=== PATIENT | male | born 1975 | race Caucasian/White ===

== ENCOUNTER 2016-07-15 11:41 | Emergency (ER) | payer MEDICAID ==
[~2016-07-15] VITALS: Ht 165.1 cm; Wt 61.0 kg
[~2016-07-15 11:41] MED LIST: HYDR-3498 PO; HYDR-906 PO; NAPR-260 PO; TAMS-14 PO
[2016-07-15 11:45] VITALS: Ht 165.1 cm; Wt 61.0 kg
[2016-07-15] MEDS ORDERED: SOD CHLORIDE 0.9% 1,000 ML IV STA (14:23)
--- NOTE | 2016-07-15 14:58 | RADRPT ---
PROCEDURE: XR Chest. CLINICAL INDICATION: chest pain, palpitations TECHNIQUE: Single frontal view of the chest was obtained COMPARISON: None FINDINGS: The heart and mediastinum are within normal limits. The lungs are clear. There is no pleural effusion or pneumothorax. RPTAT: AA IMPRESSION: No acute disease. .Fred Awan MD, MD Date Time Electronically viewed and signed by .Fred Awan MD, on 07/15/2016 14:57 .S/
--- NOTE | 2016-07-15 15:09 | RADRPT ---
PROCEDURE: CT Brain without contrast. CLINICAL INDICATION: Headache, dizziness and palpitations. TECHNIQUE: A CT of the brain was performed on a [employer] CT scanner. CT s canner utilizing a low dose technique with axial imaging from the skull base through the vertex with out IV contrast. Multiplanar reformatted images were made. Images were reviewed on a PACS workstat ion. The CTDIvol is 43.6 mGy and the DLP is 720.2 mGycm. One or more of the following dose reduction techniques were used: - Automated exposure control. - Adjustment of the mA and/or kV according to patient size. Use of iterative reconstruction technique. COMPARISON: None FINDINGS: The fourth ventricle is normal in size. The third and lateral ventricles are normal in size and con figuration. There are idiopathic calcifications in the basal ganglia. No intracranial bleed is iden tified. No intracranial mass is noted. The visible portions of the globes and extraocular muscles are normal. The paranasal sinuses are cl ear. The mastoid air cells and internal auditory canals are normal. The bony calvarium is intact. IMPRESSION: 1. Negative CT scan of the brain without contrast. 2. Idiopathic basil ganglia calcifications. RPTAT:AAJJ Physician Malou Date Time Electronically viewed and signed by Physician Malou on 07/15/2016 15:08 KIET/
[2016-07-15 15:14] LABS: ADD SCAN DIFF NO
[2016-07-15 15:16] LABS: BASOPHIL # 0.1 10^3/ul (0.0-0.1); BASOPHILS % 0.9 % (0.0-2.0); EOSINOPHILS % 0.3 % (0.0-7.0); HEMATOCRIT 48.8 % (42.0-52.0); HEMOGLOBIN 16.5 g/dl (14.0-18.0); LYMPHOCYTES # 2.4 10^3/ul (0.8-2.9); LYMPHOCYTES % 26.5 % (15.0-51.0); MEAN CORPUSCULAR HEMOGLOBIN 31.5 pg (29.0-33.0); MEAN CORPUSCULAR HGB CONC 33.8 g/dl (32.0-37.0); MEAN CORPUSCULAR VOLUME 93.3 fl (82.0-101.0); MEAN PLATELET VOLUME 11.4 fl (7.4-10.4); MONOCYTE # 0.4 10^3/ul (0.3-0.9); MONOCYTES % 4.7 % (0.0-11.0); NEUTROPHIL # 6.1 10^3/ul (1.6-7.5); NEUTROPHILS % 67.2 % (39.0-77.0); PLATELET COUNT 199 10^3/UL (140-415); RED BLOOD COUNT 5.23 10^6/ul (4.70-6.10); RED CELL DISTRIBUTION WIDTH 11.9 % (11.5-14.5)
[2016-07-15 15:26] LABS: CHLORIDE 105 mmol/L (97-110)
[2016-07-15 15:27] LABS: ALBUMIN 5.5 g/dl (3.3-4.9); INR 0.99; POTASSIUM 3.8 mmol/L (3.5-5.1); PROTIME 13.1 Sec (12.2-14.2); SODIUM 144 mmol/L (135-144)
[2016-07-15 15:28] LABS: PARTIAL THROMBOPLASTIN TIME 35.1 Sec (25.0-35.0)
[2016-07-15 15:29] LABS: CREATININE 0.81 mg/dl (0.61-1.24)
[2016-07-15 15:30] LABS: ALANINE AMINOTRANSFERASE 39 IU/L (13-69); ALBUMIN/GLOBULIN RATIO 1.48; ALKALINE PHOSPHATASE 81 IU/L (42-121); ANION GAP 18 (8-16); ASPARTATE AMINO TRANSFERASE 35 IU/L (15-46); BILIRUBIN,INDIRECT 0.6 mg/dl (0-1.1); BILIRUBIN,TOTAL 0.6 mg/dl (0.2-1.3); BLOOD UREA NITROGEN 12 mg/dl (7-20); CARBON DIOXIDE 25 mmol/L (21-31); GLUCOSE 90 mg/dl (70-220); TOTAL PROTEIN 9.2 g/dl (6.1-8.1)
[2016-07-15 15:31] LABS: CALCIUM 9.8 mg/dl (8.4-10.2)
[2016-07-15 15:42] LABS: TROPONIN-I < 0.012 ng/ml (0.00-0.12)
[2016-07-15 16:04] LABS: ADD UMIC NO; URINE BILIRUBIN (Dip) NEGATIVE (NEGATIVE); URINE BLOOD (Dip) NEGATIVE (NEGATIVE); URINE COLOR LT. YELLOW (YELLOW); URINE GLUCOSE (Dip) NEGATIVE (NEGATIVE); URINE KETONES (Dip) NEGATIVE (NEGATIVE); URINE LEUKOCYTE ESTERASE (Dip) NEGATIVE (NEGATIVE); URINE NITRITE (Dip) NEGATIVE (NEGATIVE); URINE TOTAL PROTEIN (Dip) NEGATIVE (NEGATIVE); URINE UROBILINOGEN (Dip) 0.2 E.U./dL (0.1-1.0)
--- NOTE | 2016-07-15 16:05 | ERD ---
ER Documentation Chief Complaint Date/Time DATE: 07/15/16 Chief Complaint Dizziness. Palpitations. HPI The patient is a 41-year-old male with history of dyslipidemia who presents to the Emergency Department with complaint of dizziness and palpitations since last night. The patient reports that he has a known history of dyslipidemia, and was recently placed on a course of a new medication for treatment, Gemfibrozil. He was prescribed Gemfibrozil 600 mg PO BID, to be taken 30 minutes prior to morning and evening meals. Yesterday was the patient's first day of taking the medication, and he took a dose at 7:00 am and then again at 5: 00 pm in the evening. Approximately 2 hours after taking his evening nose, he developed symptoms of palpitations, dizziness and lightheadedness. He denies any syncope or near-syncopal episodes. The patient's symptoms persisted until this morning, and therefore he presents to the Emergency Department for evaluation. He denies any chest pain, shortness of breath, cough, weakness, lower extremity edema, fevers, sweats, chills, neck pain/stiffness. Denies muscle aches/pains, abdominal pain, nausea, vomiting. Denies slurred speech, dysarthria, ataxia, or dysmetria. Denies any change in symptoms with any sort of head movements. He denies any recent head injury/trauma. Denies focal weakness or deficits. Denies history of similar symptoms in the past. Denies recent ear pain, ear fullness, tinnitus, or hearing changes. The patient does note that upon presentation to the ED, his symptoms have improved. No other complaints at this time. ROS All systems reviewed and are negative except as per history of present illness. Medications Home Meds Active Scripts Tamsulosin Hcl* (Flomax*) 0.4 Mg Cap.er.24h, 0.4 MG PO QPM, #10 CAP Prov:GABRIELLE CRUM PA-C 01/31/16 Naproxen* (Naprosyn*) 500 Mg Tablet, 500 MG PO BID Y for PAIN AND/OR INFLAMMATION, #30 TAB Prov:GABRIELLE CRUM PA-C 01/31/16 Hydrocodone/Acetaminophen (Lee 5-325 Tablet) 1 Each Tablet, 1 TAB PO Q6H Y for PAIN, #7 TAB Prov:GABRIELLE CRUM PA-C 01/31/16 Hydrocodone Bit-Acetaminophen* (Lee*) 5-325 Mg Tab, 1 TAB PO q6h Y for PAIN, # 30 TAB Prov:ERINN HORTON PACE ANALYST 05/03/15 Allergies Allergies: Coded Allergies: No Known Allergy (Unverified , 05/02/15) PMhx/Soc History of Surgery: No Anesthesia Reaction: No Hx Neurological Disorder: No Hx Respiratory Disorders: No Hx Cardiac Disorders: No Hx Psychiatric Problems: No Hx Miscellaneous Medical Probl: Yes (HYPERLIPIDEMIA) Hx Alcohol Use: No Hx Substance Use: No Hx Tobacco Use: No Smoking Status: Never smoker Physical Exam Vitals Vital Signs Date Time Temp Pulse Resp B/P Pulse Ox O2 Delivery O2 Flow Rate FiO2 07/15/16 16:49 98.4 69 18 117/69 100 Room Air 07/15/16 11:45 98.5 94 18 120/82 99 Physical Exam GENERAL: Well-developed, well-nourished, male, in no acute distress HEENT: Head is normocephalic, atraumatic. No scleral pallor or icterus. Pupils equal, round and reactive to light. Extraocular movements intact. Conjunctiva pink. No nystagmus. No photophobia. Bilaterally tympanic membranes are clear with no evidence of erythema, effusion or dulling of the light reflex. Moist mucous membranes. NECK: Supple. RESPIRATORY: Lungs are clear to auscultation bilaterally. Equal breath sounds. Normal expiratory effort. CARDIOVASCULAR: Regular rate and rhythm. S1 and S2 normal. No murmurs, rubs, or gallops. Distal pulses are palpable, 2+ bilaterally. Capillary refill is less than 2 seconds. GASTROINTESTINAL: Abdomen is soft, non-tender, and non-distended. Normal bowel sounds. FLANK: No CVA tenderness. BACK: No midline tenderness. EXTREMITIES: No clubbing, cyanosis, or edema. Normal skin perfusion. Joints non- tender, no joint effusion. Full range of motion of both the upper and lower extremities bilaterally. Muscle tone is normal. No focal swelling or erythema. NEUROLOGIC: The patient is awake, alert, oriented to person, place and time. Speech is fluent. Language parameters are intact. Follows commands well. Comprehension is intact. Cranial nerves II through XII are intact. Pupils are equal and reactive bilaterally. Extraocular movements are intact. There is no nystagmus. Facial sensation and facial movements are symmetrical. Uvula elevates symmetrically. Tongue is midline. Motor examination reveals 5/5 strength in bilateral upper and lower extremities. Sensory examination is grossly intact to light touch. Reflexes symmetrical. Normal jzoalp-ex-ayhd testing. No visual field deficits. Vision grossly intact. Gait is observed and normal, no ataxia. INTEGUMENT: Skin is intact. Warm and dry. No rashes, no petechiae present. Normal turgor. PSYCHIATRIC: Cooperative. Appropriate. Result Diagram: 07/15/16 1445 07/15/16 1445 Results 24 hrs Laboratory Tests Test 07/15/16 14:43 07/15/16 14:45 07/15/16 15:00 Bedside Glucose 91mg/dL White Blood Count 9.010^3/ul Red Blood Count 5.2310^6/ul Hemoglobin 16.5g/dl Hematocrit 48.8% Mean Corpuscular Volume 93.3fl Mean Corpuscular Hemoglobin 31.5pg Mean Corpuscular Hemoglobin Concent 33.8g/dl Red Cell Distribution Width 11.9% Platelet Count 01368^3/UL Mean Platelet Volume 11.4fl Neutrophils % 67.2% Lymphocytes % 26.5% Monocytes % 4.7% Eosinophils % 0.3% Basophils % 0.9% Nucleated Red Blood Cells % 0.0/100WBC Neutrophils # 6.110^3/ul Lymphocytes # 2.410^3/ul Monocytes # 0.410^3/ul Eosinophils # 0.010^3/ul Basophils # 0.110^3/ul Nucleated Red Blood Cells # 0.010^3/ul Prothrombin Time 13.1Sec Prothrombin Time Ratio 1.0 INR International Normalized Ratio 0.99 Activated Partial Thromboplast Time 35.1Sec Sodium Level 144mmol/L Potassium Level 3.8mmol/L Chloride Level 105mmol/L Carbon Dioxide Level 25mmol/L Anion Gap 18 Blood Urea Nitrogen 12mg/dl Creatinine 0.81mg/dl Glucose Level 90mg/dl Calcium Level 9.8mg/dl Total Bilirubin 0.6mg/dl Direct Bilirubin 0.00mg/dl Indirect Bilirubin 0.6mg/dl Aspartate Amino Transf (AST/SGOT) 35IU/L Alanine Aminotransferase (ALT/SGPT) 39IU/L Alkaline Phosphatase 81IU/L Troponin I < 0.012ng/ml Total Protein 9.2g/dl Albumin 5.5g/dl Globulin 3.70g/dl Albumin/Globulin Ratio 1.48 Thyroid Stimulating Hormone (TSH) 1.320MIU/L Free Thyroxine 1.20ng/dl Urine Color LT. YELLOW Urine Clarity CLEAR Urine pH 5.0 Urine Specific [place] <=1.005 Urine Ketones NEGATIVE Urine Nitrite NEGATIVE Urine Bilirubin NEGATIVE Urine Urobilinogen 0.2 E.U./dL Urine Leukocyte Esterase NEGATIVE Urine Hemoglobin NEGATIVE Urine Glucose NEGATIVE% Urine Total Protein NEGATIVE Current Medications Medications (Trade) Dose Ordered Sig/Senia Route PRN Reason Start Time Stop Time Status Last Admin Dose Admin Sodium Chloride (NS) 1,000 ml @ 1,000 mls/hr Q1H STAT IV 07/15/16 14:23 07/15/16 15:22 DC 07/15/16 14:41 Procedures/MDM DIAGNOSTIC TESTS AND INTERPRETATION: PROCEDURE: CT Brain without contrast. CLINICAL INDICATION: Headache, dizziness and palpitations. TECHNIQUE: A CT of the brain was performed on a [employer] CT scanner. CT scanner utilizing a low dose technique with axial imaging from the skull base through the vertex without IV contrast. Multiplanar reformatted images were made. Images were reviewed on a PACS workstation. The CTDIvol is 43.6 mGy and the DLP is 720.2 mGycm. One or more of the following dose reduction techniques were used: - Automated exposure control. - Adjustment of the mA and/or kV according to patient size. Use of iterative reconstruction technique. COMPARISON: None FINDINGS: The fourth ventricle is normal in size. The third and lateral ventricles are normal in size and configuration. There are idiopathic calcifications in the basal ganglia. No intracranial bleed is identified. No intracranial mass is noted. The visible portions of the globes and extraocular muscles are normal. The paranasal sinuses are clear. The mastoid air cells and internal auditory canals are normal. The bony calvarium is intact. IMPRESSION: 1. Negative CT scan of the brain without contrast. 2. Idiopathic basil ganglia calcifications. Physician Malou Date Time Electronically viewed and signed by John Aguila Physician on 07/15/2016 15:08 PROCEDURE: XR Chest. CLINICAL INDICATION: Palpitations TECHNIQUE: Single frontal view of the chest was obtained COMPARISON: None FINDINGS:The heart and mediastinum are within normal limits. The lungs are clear.There is no pleural effusion or pneumothorax. IMPRESSION:No acute disease. .Fred Awan MD, MD Date Time Electronically viewed and signed by .Fred Awan MD, on 07/15/2016 14: 57 EKG: Reviewed and interpreted by: Dr. Munoz EKG Interpretation: Normal sinus rhythm. Rate 73 bpm. No atrial fibrillation. No ectopy. No ST-segment elevations. Normal intervals. ER COURSE: The patient was stable throughout the ED course. IV access established by nursing staff. The patient was placed on a monitoring tech. He was given a fluid bolus. EKG, CT head, Chest x-ray, laboratory testing performed. On reevaluation, the patient's symptoms had completely resolved. The patient case was reviewed and discussed with Dr. Munoz, ED attending physician, who evaluated the patient bedside. Agrees with management and testing , including advanced imaging. Recommends that the patient be discharged home to follow up with PMD as an outpatient. I kept the patient and/or family informed of laboratory and diagnostic imaging results throughout the emergency room course. MEDICAL DECISION MAKING: This is a 41-year-old male presenting to the Emergency Department with complaint of dizziness and palpitations since last night. The patient was recently placed on Gemfibrozil treatment, and took his first two doses yesterday. His symptoms began 2 hours s/p his second dose. The patient had a completely normal neurologic examination. GCS 15 with no history of head trauma. CT head revealed no acute intracranial abnormalities, no evidence of CVA. EKG revealed no acute ischemic changes. EKG indicated no evidence of atrial fibrillation, no tachycardia, no ectopy, no arrhythmias, no WPW, no HCM, no brugada. Laboratory analysis largely unremarkable. CBC reveals no leukocytosis. Hemoglobin and hematocrit with severe anemia that would cause these symptoms.No significant electrolyte abnormalities. No hypoglycemia. Troponin < 0.012. No acute findings on CXR. TSH is within normal limits, not suggestive of thyroid etiology. No significant acute intracranial abnormalities on head CT. The clinical presentation does not suggest an acute coronary syndrome, acute pulmonary embolism or any other emergent medical condition at this time. Patient's presentation is consistent with palpitations and dizziness, now resolved. The patient did not experience any tachycardia or arrhythmias during the ED course, and was placed on a monitoring tech for several hours with no recurrence of symptoms. Gemfibrozil has a known possible adverse reaction of atrial fibrillation, though no evidence of atrial fibrillation during the ED course. Troponin negative. Doubt central causes of vertigo as patient has normal neurologic exam without dysarthria, diplopia, dysmetria, ataxia, and dysdiadochokinesia. Furthermore patient has negative test of skew and no pathologic nystagmus. Upon review and interpretation of the patient's presentation and overall ER course, I believe the patient's symptoms are most consistent with dizziness and palpitations, uncertain etiology, now resolved. He was given Fluids, after which time his symptoms completely resolved. At this time, the patient is in stable condition and therefore can be discharged home with a copy of his results and given strict return precautions for signs of deteriorating or worsening condition. The patient is advised to follow up with his primary care provider within 1-2 days for reevaluation, or return to the ER sooner for any worsening symptoms. Additionally, he was advised to stop taking the Gemfibrozil until further evaluation. I shared my medical decision making and plan with the patient at length and in great detail , and the patient verbally understands and agrees with the plan for further observation and care as an outpatient. At the time of discharge, all questions were answered. Departure Diagnosis: Primary Impression: Dizziness Additional Impression: Palpitations Condition: Stable Patient Instructions: Dizziness, Unk Cause, Gemfibrozil Oral tablet, Palpitations, Possible Causes of Dizziness or Fainting Additional Instructions: Llame al doctor MAANA y kel [place] PAT PARA DENTRO DE 1-2 PINZON. Dgale a la secretaria que nosotros le instruimos hacer esta pat.Avise o llame si navarro condicin se empeora antes de la pat. Regresa aqui si peor o no mejor. JOSE DE JESUS SAENZ PA-C Jul 15, 2016 16:05
[2016-07-15 16:49] VITALS: BP 117/69; PULSE 69; RESP 18; TEMP 98.4
== END 2016-07-15 16:49 | disposition home or self-care (01) ==
LOC: FTE 11:41
DX: R42 Dizziness and giddiness (principal); R00.2 Palpitations; R07.9 Chest pain, unspecified
CPT/HCPCS: 36415; 70450; 71010; 80053; 81003; 82962; 84439; 84443; 84484; 85025; 85610; 85730; 93005; 96360; J7030; Z7502

== ENCOUNTER 2017-04-02 18:09 | Emergency (ER) | END 2017-04-02 22:39 | disposition home or self-care (01) ==